=== PATIENT | female | born 1970 | race Caucasian/White ===

== ENCOUNTER → 2022-11-03 | Outpatient (CLI) | payer OTHER | END | disposition home or self-care (01) | LOC: SONOGRAMA 09:51 | PROVIDERS: ATTEND Pathology Anatomic Pathology & Clinical Pathology | DX: D34 Benign neoplasm of thyroid gland (principal); E04.9 Nontoxic goiter, unspecified; E04.1 Nontoxic single thyroid nodule ==

== ENCOUNTER 2022-11-18 05:55 | Inpatient (IN) | payer OTHER ==
[~2022-11-18] VITALS: Ht 154.9 cm; Wt 56.7 kg
[~2022-11-18 05:55] MED LIST: RINVOQ30 MG PO
[2022-11-18] MEDS ORDERED: BACLOFEN10 MG (13:23)
[2022-11-18] MEDS ORDERED: FOLIC ACID1 MG (13:23)
== END 2022-11-19 09:21 | disposition home or self-care (01) | DRG 627 ==
LOC: CIR.AMB 05:55 → O/R 12:27 → SURH 12:27
PROVIDERS: ADMIT Otolaryngology; ATTEND Otolaryngology
PROC: 0GTH0ZZ Resection of Right Thyroid Gland Lobe, Open Approach (ICD-10-PCS; principal; 2022-11-18 06:30)
DX: E04.1 Nontoxic single thyroid nodule (principal); Z20.822 Contact with and (suspected) exposure to COVID-19